=== PATIENT | male | born 1995 | race Caucasian/White ===

== ENCOUNTER 2020-05-25 23:56 | Emergency (ER) | payer OTHER ==
[~2020-05-25] VITALS: Ht 172.7 cm; Wt 81.6 kg
[2020-05-26 00:05] VITALS: BP 142/89
[2020-05-26] MEDS ORDERED: LORAZEPAM 1 MG TABLET ONE (00:14)
[2020-05-26] MEDS ORDERED: LORAZEPAM 1 MG TABLET PO ONE (00:30)
== END 2020-05-26 00:20 | disposition home or self-care (01) ==
LOC: ER 23:59
DX: F41.9 Anxiety disorder, unspecified (principal); F12.10 Cannabis abuse, uncomplicated; R00.2 Palpitations; R00.0 Tachycardia, unspecified